=== PATIENT | male | born 1955 | race Caucasian/White ===

== ENCOUNTER 2016-08-02 08:58 | Emergency (ER) | payer OTHER ==
[~2016-08-02] VITALS: Ht 172.7 cm; Wt 65.7 kg
[~2016-08-02 08:58] MED LIST: BACI500O8 TOP; CEPH500C3 PO; KONS520C PO; LOPE2 PO; Z.0.NO CURRENT MEDS
[2016-08-02 09:04] VITALS: BP 158/105; PULSE 74; RESP 20; TEMP 98.6; O2SAT 96
[2016-08-02] MEDS ORDERED: predniSONE 50 MG TAB PO ONE (10:00)
[2016-08-02 10:06] VITALS: BP 154/99; PULSE 78; RESP 20; O2SAT 96
[2016-08-02] MEDS: RESP: ALBUTEROL 2.5 MG/IPRATROPIUM 0.5 MG NEB (SCH) INH ×2 (10:08→10:09)
--- NOTE | 2016-08-02 10:21 | RADHPO ---
EXAM DATE/TIME: 08/02/2016 10:04 [place] COMPARISON: No previous studies available for comparison. INDICATIONS : Cough & shortness of breath x 1 week. MEDICAL HISTORY : Hypertension. SURGICAL HISTORY : Tonsillectomy. Hernia repair. ENCOUNTER: Initial ACUITY: 1 week PAIN SCORE: 0/10 LOCATION: chest FINDINGS: PA and lateral views of the chest demonstrate the lungs to be symmetrically aerated without evidence of mass, infiltrate or effusion. The cardiomediastinal contours are unremarkable. Osseous structure s are intact. CONCLUSION: No acute disease. Ge Castaneda MD on August 02, 2016 at 10:20 Board Certified Radiologist. This report was verified electronically.
--- NOTE | 2016-08-02 10:31 | PD ---
HPI Chief Complaint: Respiratory Symptoms Time Seen by Provider: 09:37 Travel History International Travel<30 days: No Contact w/Intl Traveler<30days: No Traveled to known affect area: No History of Present Illness HPI This is a 61 year old male who presents to the emergency department feeling like he can't breath. For the past week and a half he has had increasing shortness of breath with cough productive of clear and brownish sputum, worse with exertion, constant and worsening. He has had these symptoms intermittently for a year, but its worse this week. The shortness of breath is worse lying flat and in the evening, but he has no swelling in his legs. Pt. has also been having chronic diarrhea which he has always attributed to irritable bowel syndrome. The patient smokes close to 2 packs/day for as long as he can remember. PFSH Past Medical History Diminished Hearing: No Hypertension: Yes Immunizations Current: Yes Tetanus Vaccination: < 5 Years Influenza Vaccination: No Past Surgical History Abdominal Surgery: Yes (Hernia repair X's 2) Tonsillectomy: Yes Other Surgery: Yes (HERNIA INGUNAL AND UMBILICAL REPAIR) Social History Alcohol Use: Yes (3 beers/day) Tobacco Use: Yes (1.5 PPD) Substance Use: No Allergies-Medications (Allergen,Severity, Reaction): Coded Allergies: No Known Allergies (Unverified , 12/11/11) Reported Meds & Prescriptions Reported Meds & Active Scripts Active No Active Prescriptions or Reported Medications Review of Systems Except as stated in HPI: all other systems reviewed are Neg Physical Exam Narrative GENERAL:Well appearing, no acute distress SKIN: Warm and dry. HEAD: Atraumatic. Normocephalic. EYES: Pupils equal and round. No injection or drainage. ENT: Moist mucous membranes NECK: Trachea midline. CARDIOVASCULAR: Regular rate and rhythm. No murmur appreciated. No edema. RESPIRATORY: Diffusely wheezing with no increased work of breathing. GASTROINTESTINAL: Abdomen soft, non-tender, nondistended. MUSCULOSKELETAL: No obvious deformities. NEUROLOGICAL: Awake and alert. No obvious cranial nerve deficits. Moving all extremities. PSYCHIATRIC: Appropriate mood and affect; insight and judgment normal. Data Data Last Documented VS Vital Signs Date Time Temp Pulse Resp B/P Pulse Ox O2 Delivery O2 Flow Rate FiO2 08/02/16 10:06 78 20 154/99 96 08/02/16 09:04 98.6 Orders Albuterol-Ipratropium Neb (Duoneb Neb) (08/02/16 10:00) Prednisone (Deltasone) (08/02/16 10:00) Chest, Pa & Lat (08/02/16 ) MDM Medical Decision Making Medical Screen Exam Complete: Yes Emergency Medical Condition: Yes Interpretation(s) Afebrile, no tachycardia, moderate hypertension Last 24 hours Impressions Chest X-Ray 08/02/16 0000 Signed Impressions: Service Date/Time: Tuesday, August 02, 2016 10:04 - CONCLUSION: No acute disease. Ge Castaneda MD Differential Diagnosis COPD exacerbation, congestive heart failure, pneumonia, viral syndrome Narrative Course This is a 61-year-old male who presents with increasing shortness of breath over the past week. He has a long smoking history. Chest x-ray is negative for pneumonia. Patient's diffusely wheezing on exam. He was given bronchodilator treatments and steroids. His exam improved significantly. I think the patient requires a primary care physician to establish follow-up. I did take some time to discuss smoking cessation with the patient. Diagnosis Primary Impression: COPD exacerbation Patient Instructions: General Instructions Additional Instructions: If you develop severe shortness of breath, chest pain, or difficulty breathing return to the emergency department. Use albuterol every 4 hours for the next 2 days. Then use as needed for wheezing. Complete your course of steroids. Follow up with your primary care physician in 2-3 days if your symptoms have not improved. Med/Other Pt SpecificInfo: Prescription(s) given Scripts Albuterol 8.5 GM Inh (Proair Hfa 8.5 GM Inh)90 Mcg/Act Aer2 Puff INH Q4-6H PRN ( SHORTNESS OF BREATH) #1 INHALER Ref 0 108 mcg/actuation Prov:Madie Crocker MD 08/02/16 Prednisone 20 Mg Tab40 Mg PO DAILY 4 Days Prov:Madie Crocker MD 08/02/16 Disposition: 01 DISCHARGE HOME Condition: Stable Madie Crocker MD Aug 02, 2016 09:51
[2016-08-02] MEDS ORDERED: PRED20 PO (10:48)
[2016-08-02] MEDS ORDERED: ALBUAER3 INH (10:48)
== END 2016-08-02 10:57 | disposition home or self-care (01) ==
LOC: PHED 08:58
DX: J44.1 Chronic obstructive pulmonary disease with (acute) exacerbation (principal); I10 Essential (primary) hypertension; F17.210 Nicotine dependence, cigarettes, uncomplicated
CPT/HCPCS: 71020; 94640; 94664; 99284; J7512

== ENCOUNTER 2017-02-25 12:50 | Emergency (ER) | payer SELFPAY ==
[~2017-02-25] VITALS: Ht 175.3 cm; Wt 63.2 kg
[~2017-02-25 12:50] MED LIST changes: +ALBUAER3 INH; -BACI500O8 TOP; -CEPH500C3 PO; -KONS520C PO; -LOPE2 PO; +PRED20 PO; -Z.0.NO CURRENT MEDS
[2017-02-25 13:01] VITALS: BP 134/88; PULSE 90; RESP 18; TEMP 99.9; O2SAT 97
[2017-02-25] MEDS ORDERED: DALBAVANCIN INJ 1,500 MG in DEXTROSE 5% IN WATE 500 ML INJ 500 ML IV STA ×4 (13:20→14:19)
[2017-02-25] MEDS ORDERED: ASP: No known hypersensitivity to Vanco, Telavancin, Dalbavancin OTHER ONE (13:30)
[2017-02-25] MEDS ORDERED: MISCELLANEOUS PHARMACY INFORMATION XX ONE (13:30)
[2017-02-25] MEDS ORDERED: ASP: Does not meet inpatient admission criteria OTHER ONE (13:30)
[2017-02-25 13:46] LABS: AUTOMATED NEUTROPHIL # 10.5 TH/MM3 (1.8-7.7); BASOPHIL # 0.6 TH/MM3 (0-0.2); BASOPHIL % 4.1 % (0.0-2.0); EOSINOPHIL # 0.2 TH/MM3 (0-0.4); EOSINOPHIL % 1.5 % (0.0-4.0); HEMATOCRIT 44.7 % (39.0-51.0); HEMO FLAGS DIFF FINAL; LYMPHOCYTE # 1.4 TH/MM3 (1.0-4.8); MEAN CORPUSCULAR HEMOGLOBIN 30.4 PG (27.0-34.0); MEAN CORPUSCULAR HGB CONC 33.8 % (32.0-36.0); NEUT % 78.4 % (16.0-70.0); PLATELET COUNT 258 TH/MM3 (150-450); RED BLOOD COUNT 4.96 MIL/MM3 (4.50-5.90); RED CELL DISTRIBUTION WIDTH 12.6 % (11.6-17.2); WHITE BLOOD COUNT 13.5 TH/MM3 (4.0-11.0)
[2017-02-25 13:58] LABS: CHLORIDE 104 MEQ/L (98-107); POTASSIUM 3.6 MEQ/L (3.5-5.1); SODIUM (NA) 138 MEQ/L (136-145)
[2017-02-25 14:01] LABS: ANION GAP 10 MEQ/L (5-15); BICARBONATE 23.6 MEQ/L (21.0-32.0)
[2017-02-25 14:02] LABS: BLOOD UREA NITROGEN 16 MG/DL (7-18)
[2017-02-25 14:04] LABS: ALT (GPT) 16 U/L (12-78)
--- NOTE | 2017-02-25 14:04 | PD ---
HPI Chief Complaint: Skin Problem Time Seen by Provider: 13:02 Travel History International Travel<30 days: No Contact w/Intl Traveler<30days: No Traveled to known affect area: No History of Present Illness HPI Is a 61-year-old man who presents to the emergency department with widespread scabbing wounds and lesions especially affecting his feet and hands as well as his trunk and umbilicus. He has first noticed the symptoms about a week or so ago, primarily his hands and feet. They start as small pustules. After that they worsen and a cluster pustules, worsening pain and redness, and then rupture and open. No fevers. No history of previous similar symptoms. His a history of COPD, no history of diabetes. History Past Medical History Narrative Medical COPD Tetanus Vaccination: < 5 Years Social History Alcohol Use: Yes (3 beers/day) Tobacco Use: Yes (1.5 PPD) Allergies-Medications (Allergen,Severity, Reaction): Coded Allergies: No Known Allergies (Unverified , 12/11/11) Reported Meds & Prescriptions Reported Meds & Active Scripts Active Proair Hfa 8.5 GM Inh (Albuterol Sulfate) 90 Mcg/Act Aer 2 Puff INH Q4-6H PRN 108 mcg/actuation Review of Systems Except as stated in HPI: all other systems reviewed are Neg Physical Exam Narrative GENERAL: Well-appearing 61-year-old man, no acute distress. SKIN: Multiple areas of scattered pustular lesions on the hands and feet especially in the intertriginous areas. This is surrounded by erythema and redness. There is a lot of scabbing and scaling and crusting in the area as well, specially in the feet. On the feet there appears to be more extensive cellulitis with tenderness and spread and purulent drainage from the toes. This involves the base of the foot, especially on the right. Is a little bit of ecchymosis on a couple of the toes with some purulent drainage. HEAD: Atraumatic. Normocephalic. EYES: Pupils equal and round. No scleral icterus. No injection or drainage. ENT: No nasal bleeding or discharge. Mucous membranes pink and moist. NECK: Trachea midline. No JVD. CARDIOVASCULAR: Regular rate and rhythm. No murmur appreciated. RESPIRATORY: No accessory muscle use. Clear to auscultation. Breath sounds equal bilaterally. GASTROINTESTINAL: Abdomen soft, non-tender, nondistended. Hepatic and splenic margins not palpable. There is moore crusting and drainage from the umbilicus in the umbilicus itself. MUSCULOSKELETAL: No obvious deformities. No edema. NEUROLOGICAL: Awake and alert. No obvious cranial nerve deficits. Motor grossly within normal limits. Normal speech. PSYCHIATRIC: Appropriate mood and affect; insight and judgment normal. Data Data Last Documented VS Vital Signs Date Time Temp Pulse Resp B/P (MAP) Pulse Ox O2 Delivery O2 Flow Rate FiO2 02/25/17 13:01 99.9 90 18 134/88 (103) 97 Orders Orders Complete Blood Count With Diff (02/25/17 13:20) Blood Culture (02/25/17 13:20) Consult Infectious Disease (02/25/17 ) Case Management Consult (02/25/17 ) Asp:No Reaction To Dalbav/Vanc (Asp Crit (02/25/17 13:30) Asp: Does Not Meet Inpt Admit (Asp Crit: (02/25/17 13:30) [facility] Information ([facility] (02/25/17 13:30) Dalbavancin Inj (Dalvance Inj) (02/25/17 13:20) Document (02/25/17 13:20) Measurements (02/25/17 13:20) Comprehensive Metabolic Panel (02/25/17 13:20) Wound Culture And Gram Stain (02/25/17 13:23) (Hub Use Only)Inp Phy Cons/Ref (02/25/17 ) Labs Laboratory Tests Test 02/25/17 13:29 White Blood Count 13.5 TH/MM3 Red Blood Count 4.96 MIL/MM3 Hemoglobin 15.1 GM/DL Hematocrit 44.7 % Mean Corpuscular Volume 90.0 FL Mean Corpuscular Hemoglobin 30.4 PG Mean Corpuscular Hemoglobin Concent 33.8 % Red Cell Distribution Width 12.6 % Platelet Count 258 TH/MM3 Mean Platelet Volume 7.9 FL Neutrophils (%) (Auto) 78.4 % Lymphocytes (%) (Auto) 10.0 % Monocytes (%) (Auto) 6.0 % Eosinophils (%) (Auto) 1.5 % Basophils (%) (Auto) 4.1 % Neutrophils # (Auto) 10.5 TH/MM3 Lymphocytes # (Auto) 1.4 TH/MM3 Monocytes # (Auto) 0.8 TH/MM3 Eosinophils # (Auto) 0.2 TH/MM3 Basophils # (Auto) 0.6 TH/MM3 CBC Comment DIFF FINAL Differential Comment Sodium Level 138 MEQ/L Potassium Level 3.6 MEQ/L Chloride Level 104 MEQ/L [facility] Medical Decision Making Medical Screen Exam Complete: Yes Emergency Medical Condition: Yes Differential Diagnosis Cellulitis, bullous impetigo, scabies, autoimmune disease, vasculitis, other Narrative Course Medical decision making Is a 61-year-old man who appears several bullous impetigo this for a widespread ST and feet and abdomen, and now associated with multiple areas of cellulitis going on the hands especially on the feet. No fevers or evidence of sepsis or systemic infection. Patient states he cannot afford any oral antibiotics at this point. Initial plan was for Keflex and Bactrim and mupirocin cream. Given patient's limited financial means, and multifocal areas of cellulitis, decision was made to proceed with dalvance infusion. Patient will be discharged for outpatient follow-up. Diagnosis Primary Impression: Cellulitis Additional Impression: Impetigo bullosa Referrals: Rubi Cuenca MD 1 week Additional Instructions: Follow-up with her primary physician, and with Laney Hannah. Return to the emergency department for any new or worsening symptoms. Wash all your sheets regularly in hot soapy water as discussed. Wash clothes daily in hot soapy water. Med/Other Pt SpecificInfo: No Change to Meds Disposition: 01 DISCHARGE HOME Condition: Stable Christiano Palma MD Feb 25, 2017 14:04
[2017-02-25 14:05] LABS: AST (GOT) 11 U/L (15-37); GLOMERULAR FILTRATION RATE 56 ML/MIN (>89)
[2017-02-25 14:06] LABS: TOTAL BILIRUBIN ADULT 1.2 MG/DL (0.2-1.0)
[2017-02-25 14:07] LABS: ALKALINE PHOSPHATASE 98 U/L (45-117)
[2017-02-25 14:55] VITALS: BP 128/78; PULSE 88; RESP 18; O2SAT 98
[2017-02-25 16:24] VITALS: BP 138/78
== END 2017-02-25 16:26 | disposition home or self-care (01) ==
LOC: PHED 12:50
DX: L03.114 Cellulitis of left upper limb (principal); L03.113 Cellulitis of right upper limb; L03.116 Cellulitis of left lower limb; L03.115 Cellulitis of right lower limb; L01.03 Bullous impetigo; B95.61 Methicillin susceptible Staphylococcus aureus infection as the cause of diseases classified elsewhere; B95.0 Streptococcus, group A, as the cause of diseases classified elsewhere; F17.200 Nicotine dependence, unspecified, uncomplicated; Z87.09 Personal history of other diseases of the respiratory system
CPT/HCPCS: 80053; 85025; 86403; 87040; 87070; 87186; 96365; 99284; J0875; J7060; 87205

== ENCOUNTER 2017-03-21 12:42 | Emergency (ER) | payer MEDICAID ==
[~2017-03-21] VITALS: Ht 175.3 cm; Wt 62.0 kg
[~2017-03-21 12:42] MED LIST changes: -PRED20 PO
[2017-03-21 13:01] VITALS: BP 139/92; PULSE 85; RESP 18; TEMP 98.2; O2SAT 98
[2017-03-21] MEDS ORDERED: IPRASOL INH (13:20)
--- NOTE | 2017-03-21 13:20 | PD ---
HPI Chief Complaint: Medication Refill Request Time Seen by Provider: 13:15 Travel History International Travel<30 days: No Contact w/Intl Traveler<30days: No Traveled to known affect area: No History of Present Illness HPI 61-year-old male reports a history of COPD and no DuoNebs at home. He arrives requesting refill for DuoNebs. No cp. No fever. Associated symptoms include chronic cough. Severity moderate. Location cardiopulmonary. PFSH Past Medical History Diminished Hearing: No Hypertension: Yes Respiratory: Yes (COPD) Immunizations Current: Yes Past Surgical History Abdominal Surgery: Yes (Hernia repair X's 2) Tonsillectomy: Yes Other Surgery: Yes (HERNIA INGUNAL AND UMBILICAL REPAIR) Social History Alcohol Use: Yes (3 beers/day) Tobacco Use: Yes (1.5 PPD) Substance Use: No Allergies-Medications (Allergen,Severity, Reaction): Coded Allergies: No Known Allergies (Unverified , 03/21/17) Reported Meds & Prescriptions Reported Meds & Active Scripts Active Duoneb (Ipratropium-Albuterol Neb) 0.5-2.5 Mg/3 Ml Neb 1 Nebule INH Q4HR NEB Proair Hfa 8.5 GM Inh (Albuterol Sulfate) 90 Mcg/Act Aer 2 Puff INH Q4-6H PRN 108 mcg/actuation Review of Systems Except as stated in HPI: all other systems reviewed are Neg General / Constitutional: No: Fever Respiratory: Positive: Shortness of Breath Physical Exam Narrative GENERAL: 61 yo M, WNWD, NAD SKIN: Warm and dry. HEAD: Atraumatic. Normocephalic. EYES: Pupils equal and round. No scleral icterus. No injection or drainage. ENT: No nasal bleeding or discharge. Mucous membranes pink and moist. NECK: Trachea midline. No JVD. CARDIOVASCULAR: Regular rate and rhythm. RESPIRATORY: Minimal wheezing bilaterally. Speaking sentences. GASTROINTESTINAL: Abdomen soft, non-tender, nondistended. Hepatic and splenic margins not palpable. MUSCULOSKELETAL: Extremities without clubbing, cyanosis, or edema. No obvious deformities. NEUROLOGICAL: Awake and alert. No obvious cranial nerve deficits. Motor grossly within normal limits. Five out of 5 muscle strength in the arms and legs. Normal speech. PSYCHIATRIC: Appropriate mood and affect; insight and judgment normal. Data Data Last Documented VS Vital Signs Date Time Temp Pulse Resp B/P (MAP) Pulse Ox O2 Delivery O2 Flow Rate FiO2 03/21/17 13:01 98.2 85 18 139/92 (108) 98 VS reviewed MDM Medical Decision Making Medical Screen Exam Complete: Yes Emergency Medical Condition: Yes Differential Diagnosis copd exacerbation, medication refill, hypoxia Narrative Course dunoeb script refilled. pt ready for discharge. Diagnosis Primary Impression: Medication refill Referrals: Primary Care Physician 2 days Additional Instructions: You have a choice when it comes to health care, and we are glad that you chose [facility]. Hopefully, we have met your expectations on today's visit. You are welcome to return to [facility] at any time, as we are committed to meeting the health care needs of our community. Med/Other Pt SpecificInfo: Prescription(s) given Scripts Ipratropium-Albuterol Neb (Duoneb) 0.5-2.5 Mg/3 Ml Neb 1 NEBULE INH Q4HR NEB for SHORTNESS OF BREATH, #120 NEBULE 0 Refills Prov: Del Restrepo MD 03/21/17 Disposition: 01 DISCHARGE HOME Condition: Stable Del Restrepo MD Mar 21, 2017 13:20
== END 2017-03-21 13:29 | disposition home or self-care (01) ==
LOC: PHEFT 12:42
DX: J44.9 Chronic obstructive pulmonary disease, unspecified (principal); I10 Essential (primary) hypertension; F17.210 Nicotine dependence, cigarettes, uncomplicated; Z79.899 Other long term (current) drug therapy
CPT/HCPCS: 99281